=== PATIENT | female | born 1960 | race Caucasian/White ===

== ENCOUNTER 2023-08-23 19:36 | Emergency (ER) | payer OTHER ==
[2023-08-23 19:48] VITALS: BP 137/68; PULSE 79; RESP 16; TEMP 98.1; BMI 39.0
== END 2023-08-23 23:21 | disposition home or self-care (01) ==
LOC: JERFT 19:36
DX: S82.831A Other fracture of upper and lower end of right fibula, initial encounter for closed fracture (principal); W19.XXXA Unspecified fall, initial encounter
CPT/HCPCS: 73610-TC-LT-FY; 73610-TC-RT-FY; 73630-TC-LT; 73630-TC-RT-FY; 99283-25